=== PATIENT | female | born 1980 | race Caucasian/White ===

== ENCOUNTER → 2016-06-19 | Outpatient (REF) | payer MEDICAID, OTHER ==
[~2016-06-19] MED LIST: /ONDA4TA OR; ABIL1TAB5 PO; BCP OR; BOTO10VL IM; FIORICET OR; IBUPOTC PO; MACR100C3 PO; MAXA10TA17 OR; PERCOCET PO; PROP40TA OR; RIFAMPIN OR; SUMA100T2 PO; TOPI1TAB31 PO; VENL150T PO; XANA0.25 OR; ZOLO100T OR
[2016-06-19 21:23] LABS: CALCIUM OXALATE CRYSTALS LARGE
== END ==
LOC: M LAB REF 09:06
PROVIDERS: ATTEND Physician Assistant
DX: N39.0 Urinary tract infection, site not specified (principal)

== ENCOUNTER 2016-06-23 10:14 | Day surgery (SDC) | payer MEDICAID, OTHER ==
[~2016-06-23] VITALS: Ht 160 cm; Wt 90.9 kg
[~2016-06-23 10:14] MED LIST changes: -ABIL1TAB5 PO; -BOTO10VL IM; -IBUPOTC PO; -MACR100C3 PO; -PERCOCET PO; -SUMA100T2 PO; -TOPI1TAB31 PO; -VENL150T PO
[2016-06-23] MEDS ORDERED: ONDANSETRON 4MG/2ML VIAL (J2405) As Ordered ONE ×5 (10:38→20:58)
[2016-06-23] MEDS ORDERED: METOCLOPRAMIDE INJ 10MG/2ML VIAL (J2765) As Ordered ONE (10:38)
[2016-06-23 11:14] LABS: BASO % 0.4 % (0.0-1.0); EOS # 0.3 K/mm3 (0.0-0.50); EOS % 2.7 % (0.0-3.0); LARGE UNSTAINED CELL # 0.1 K/mm3 (0.0-0.4); LARGE UNSTAINED CELL % 1.1 % (0.0-4.0); LYMPH # 1.6 K/mm3 (1.5-4.5); MEAN CORPUSCULAR HEMOGLOBIN 31.7 pg (27.0-33.0); MEAN CORPUSCULAR HGB CONC 34.6 g/dl (32.0-36.5); MEAN CORPUSCULAR VOLUME 91.7 fl (80.0-96.0); MONO # 0.6 K/mm3 (0.0-0.8); MONO % 5.8 % (0.0-5.0); NEUTROPHILS # 7.5 K/mm3 (1.8-7.7); PLATELET COUNT, AUTOMATED 286 k/mm3 (150-450); RED CELL DISTRIBUTION WIDTH 13.1 % (11.5-14.5); WHITE BLOOD COUNT 9.9 K/mm3 (4.0-10.0)
[2016-06-23 11:24] LABS: ALBUMIN 3.6 GM/DL (3.2-5.2); ALBUMIN/GLOBULIN RATIO 1.03 (1.00-1.93); ALKALINE PHOSPHATASE 42 U/L (45-117); ALT/SGPT 20 U/L (12-78); AMYLASE 59 U/L (25-115); ANION GAP 10 MEQ/L (8-16); AST/SGOT 13 U/L (15-37); BILIRUBIN,DIRECT < 0.1 MG/DL (0.0-0.2); BILIRUBIN,TOTAL 0.2 MG/DL (0.2-1.0); BLOOD UREA NITROGEN 19 MG/DL (7-18); CARBON DIOXIDE LEVEL 22 MEQ/L (21-32); CHLORIDE LEVEL 110 MEQ/L (98-107); CREATININE FOR GFR 1.67 MG/DL (0.55-1.02); GLUCOSE, FASTING 87 MG/DL (70-105); POTASSIUM SERUM 3.9 MEQ/L (3.5-5.1); SODIUM LEVEL 142 MEQ/L (136-145); TOTAL PROTEIN 7.1 GM/DL (6.4-8.2)
--- NOTE | 2016-06-23 11:42 | REP ---
Clinical: Renal colic. Findings: Mild to moderate right-sided obstructive uropathy is appreciated with perinephric stranding and hydroureteronephrosis as well as periureteral stranding with a 4.0 mm calculus in the distal right ureter approaching the ureterovesicle junction (images 129 - 130). The left kidney demonstrates 3 mm nonobstructing intrarenal calculus without perinephric stranding or hydroureteronephrosis. The bladder is collapsed. Liver, spleen, pancreas, gallbladder, and bilateral adrenal glands are normal. The enteric system is without obstruction or acute inflammatory process and a normal terminal ileum and appendix are identified in the right lower quadrant. Pelvis demonstrates collapsed bladder with 4 mm calculus approaching the right ureterovesical junction. Uterus and adnexa are normal. No pelvic fluid or ascites. No adenopathy. No free air. Abdominal aorta without aneurysm. Lung bases are clear. Impression: Mild to moderate right-sided obstructive uropathy with a 4 mm calculus approaching the ureterovesicle junction. 3 mm nonobstructing left renal calculus. Signed by Keith Lacey MD 06/23/2016 11:34 A
[2016-06-23] MEDS ORDERED: MORPHINE 4 MG/ML 1ML SYRINGE As Ordered ONE ×2 (13:18→15:36)
[2016-06-23] MEDS ORDERED: VENL150T PO (13:50)
[2016-06-23] MEDS ORDERED: TOPI1TAB31 PO ×2 (13:50)
[2016-06-23] MEDS ORDERED: ABIL1TAB5 PO (13:50)
[2016-06-23] MEDS ORDERED: IBUPOTC PO (13:50)
[2016-06-23] MEDS ORDERED: MACR100C3 PO (13:50)
[2016-06-23] MEDS ORDERED: BOTO10VL IM (13:50)
[2016-06-23] MEDS ORDERED: SUMA100T2 PO (13:51)
--- NOTE | 2016-06-23 14:05 | CR ---
DATE OF CONSULTATION: 06/23/2016 REASON FOR CONSULTATION: Right flank pain, found to have a 4 mm obstructing right ureteral stone. HISTORY OF PRESENT ILLNESS: The patient is a 36-year-old female who has had right upper back pain radiating to the groin area for the last 5 days. She was seen at urgent care and diagnosed with a kidney infection and started on Macrobid. She continued to have the pain with some nausea, and she decided to come into the emergency room. A CT scan of the abdomen and pelvis was done on 06/23/2016, and it showed a 4 mm distal right ureteral stone with right obstructive uropathy with right hydroureteronephrosis and periureteral and perinephric stranding. There is also nonobstructing 3 mm stone. A urinalysis does show 7 white blood cells per high power field and four red blood cells. Her creatinine is elevated at 1.67. Her white blood count is 9.9. The patient has no previous history of kidney stones. She does get approximately one urinary tract infection yearly, and her symptoms include urinary frequency and also right flank discomfort. She denies any history of gross hematuria. She has had no burning with urination recently and no fever or chills. PAST MEDICAL HISTORY: 1. Anxiety. 2. Depression. 3. Migraine headaches. PAST SURGICAL HISTORY: 1. Sinus surgery. 2. Tonsillectomy. 3. Laser surgery for cervical dysplasia. 4. Tubal ligation. MEDICATIONS: - Effexor - Imitrex - Topamax - Abilify ALLERGIES: DEPAKOTE, STADOL, MAXALT. SOCIAL HISTORY: She quit smoking cigarettes in the summer of 2015. She does not drink alcohol, either, for the last many months; and prior to that, was just an occasional drinker. She is and a single parent with a young son. FAMILY HISTORY: Her father has hypercholesterolemia, and her mother has obesity. REVIEW OF SYSTEMS: A 12-system review was reviewed in the chart and was essentially negative. She has had no significant constipation, diarrhea, or other issues. PHYSICAL EXAMINATION: This is a well-developed, well-nourished female, lying in a hospital bed, in no acute respiratory distress. She is alert and oriented times three. Her temperature is 96.3, her pulse is 64, respirations are 18, and her blood pressure is 108/69. Her eyes are pupils equal, round, and reactive to light (PERRL) and extraocular movements intact (EOMI). Her neck is supple, and her trachea is midline. She has no significant supraclavicular or cervical adenopathy. Her heart has a regular rate and rhythm. Her lungs are clear to auscultation and percussion. She does have some mild right lower back pain but no severe right costovertebral angle (CVA) tenderness. Her abdomen is soft with some mild right lower quadrant tenderness but no rebound or guarding. Her extremities show no cyanosis, clubbing, or edema. LABORATORY DATA: Her white blood count is 9.9, hemoglobin and hematocrit 14.6 over 42.3. Her BUN is 19, and her creatinine is 1.67. Her urinalysis shows 7 white blood cells and 4 red blood cells per high power field. RADIOLOGY: CT scan of the abdomen and pelvis 06/23/2016 shows a 4 mm distal right stone with right hydroureteronephrosis with periureteral and perinephric stranding. There is also a 3 mm nonobstructing left renal stone. DISCUSSION: I discussed these findings at length with the patient today. We discussed all different options, alternatives, risks, and benefits. We discussed watchful waiting versus surgical management. Because she has been in pain for 5 days, she would prefer to proceed with surgical management today. We discussed exactly how this is done and what to expect both pre- and postprocedurally. We discussed the major risks of the procedure, which included but was not limited to the risks of general anesthesia, reactions to medication, bleeding, infection, inability to remove the stone, ureteral and/or bladder injury, and a postoperative stent which will need to be removed in the office. We discussed that the stent is uncomfortable for some people. At this point, she would like to proceed with the proposed procedure. IMPRESSION: 1. 5-day history of right flank pain, found to have a 4 mm distal right ureteral stone with periureteral and perinephric stranding with a urinalysis showing 7 white blood cells and 4 red blood cells. 2. Nonobstructing left ureteral stone in a patient who never had stones prior to today. 3. Occasional urinary tract infection (UTI). 4. Medical history for anxiety, depression, migraine headaches. PLAN: Schedule cystoscopy, right ureteroscopy with right laser lithotripsy versus stone basketing, and a right ureteral stent placement today.
--- NOTE | 2016-06-23 15:44 | EDDOCDS ---
Nurse's Notes [facility] Name: Janelle Fonseca Age: 36 yrs Sex: Female : 1980 Arrival Date: 06/23/2016 Time: 10:14 Bed Admit Hold Private MD: Samson Crawford Diagnosis: Calculus of kidney and ureter-Right 4mm obstructing and Left 3mm nonobstructing left;Urinary tract infection, site not specified Presentation: 06/23 10:21 Presenting complaint: Patient states: went to urgent care tues was told she had a dsf kidney infection. Pt reports having the same sxs. Pt c/o right flank pain and lower abdominal pain. Adult Sepsis Screening: The patient does not have new or worsening altered mentation. Patient's respiratory rate is less than 22. Systolic blood pressure is greater than 100. Patient has a qSOFA score of 0- Negative Sepsis Screen. Suicide/Homicide risk assessment- the patient denies having any suicidal and/or homicidal ideations and does not present with any other emotional, behavioral or mental health complaints. Status: The patient is a dependent. Transition of care: patient was not received from another setting of care. 10:21 Acuity: KATHERINE Level 3 dsf 10:21 Method Of Arrival: Walkin/Carried/Asstd dsf Triage Assessment: 10:25 General: Appears in no apparent distress, Behavior is appropriate for age, cooperative. dsf Pain: Location: right flank Pain currently is 6 out of 10 on a pain scale. Quality of pain is described as stabbing. HIV screening NA for this visit Offered previously. : Reports urgency since 4 days ago. LOPPER: 10:25 LMP 05/26/2016 dsf Historical: - Allergies: no known allergies; - Home Meds: 1. Topamax 100 mg Oral tab 2 tabs 2 tabs at HS 1 tab in AM (Last dose: 06/22/2016) 2. botox injection every 3 months 3. Imitrex 25 mg Oral tab as needed (Last dose: Unknown) 4. Effexor XR 150 mg Oral cp24 2 cap once daily (Last dose: 06/22/2016) 5. Abilify 15 mg Oral tab 1 tab once daily (Last dose: 06/22/2016) 6. 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 No barriers to communication noted, The patient speaks fluent Italian, Speaks appropriately for age. - Family history: Not pertinent. - : The pt / caregiver states he / she is not on anticoagulants. Home medication list is obtained from the patient. - Exposure Risk Screening:: None identified. Screenin:02 Screening information is obtained from the patient. Fall risk: No risks identified. dls Assistance ADL's: requires no assistance with activities of daily living. Abuse/DV Screen: The patient / caregiver reports he/she is: not in a situation that causes fear, pain or injury. Nutritional screening: No deficits noted. Advance Directives: Currently, there is no health care proxy. There is no active DNR order. There is no living will. There is no Power of Wire Harness Assembler. Advance directive information has not previously been placed in an [facility] medical record. Further advance directive information is declined. home support is adequate. Assessment: 10:58 General: Appears in no apparent distress, well developed, well nourished, well groomed, dls Behavior is cooperative. Neurological: No deficits noted. EENT: No deficits noted. Cardiovascular: No deficits noted. Respiratory: No deficits noted. GI: Reports nausea. : Reports burning with urination. 13:34 General: Dr Brush in to examine pt for admission instructed pt again to remain NPO dls medicated pt IV for discomfort IV site remains patent and clear.. 13:49 General: Appears in no apparent distress, Behavior is appropriate for age, cooperative. pml Pain: Denies pain. Neurological: Level of Consciousness is awake, alert, Oriented to person, place, time. Cardiovascular: Capillary refill < 3 seconds. Respiratory: Airway is patent Respiratory effort is even, unlabored. Derm: Skin is pink, warm & dry. 15:04 General: resting on stretcher, resps easy and unlabored, skin p/w/d. voices no pml complaints. 15:40 General: Appears in no apparent distress, Behavior is appropriate for age, cooperative. pml Pain: Location: back Pain currently is 7 out of 10 on a pain scale. Neurological: Level of Consciousness is awake, alert, Oriented to person, place, time. Cardiovascular: Capillary refill < 3 seconds. Respiratory: Airway is patent Respiratory effort is even, unlabored. GI: Abdomen is non- distended obese. Derm: Skin is pink, warm & dry. Vital Signs: 10:17 BP 144 / 86; Pulse 102; Resp 18; Temp 96.5(T); Pulse Ox 100% on R/A; Weight 90.72 kg nb2 (R); Height 5 ft. 3 in. (160.02 cm) (R); Pain 6/10; 13:42 BP 117 / 73; Pulse 78; Resp 18; Temp 96.9(O); Pulse Ox 98% on R/A; Pain 4/10; nb2 13:45 Pain 0/10; pml 15:42 BP 110 / 59; Pulse 84; Resp 18; Temp 97.9; Pulse Ox 99% on R/A; Pain 5/10; pml 10:17 Body Mass Index 35.43 (90.72 kg, 160.02 cm) [facility] Vitals: 10:17 Log In Time: June 23, 2016 at 10:07. nb2 ED Course: 10:16 Patient visited by Kasie Weir. nb2 10:16 Samson Crawford is Private Physician. nb2 10:16 Patient moved to Waiting nb2 10:18 Patient visited by Kasie Weir. nb2 10:18 Patient moved to Pre RCE nb2 10:22 Triage Initiated dsf 10:25 Ashley Roe [facility]-C [facility]. ef1 10:25 Jessica Springer MD is Attending Physician. ef1 10:26 Patient moved to Triage 2 dsf 10:27 Patient visited by Ashley Roe PA-C. ef1 10:39 Patient moved to I4 / M4 dsf 10:42 Pt greeted and oriented to ED. Patient advised of names of staff involved in care, jam1 location of call green, wait times and NPO status. Patient has correct armband on for positive identification. Placed in gown. Bed in low position. Call light in reach. Side rails up X 1. Door closed. 10:51 Patient name changed from Janelle\S\\S\Fonseca\S\ to Janelle\S\ \S\Fonseca. EDMS 10:52 [facility] Payment Agreement was scanned into [employer] and attached to record. lg 10:54 Amylase Sent. dls 10:54 Basic Metabolic Profile Sent. dls 10:54 CBC with Diff Sent. dls 10:55 Lipase Sent. dls 10:55 Liver Profile Sent. dls 10:56 Inserted saline lock: 20 gauge in right antecubital area and blood collected. The dls patient tolerated the procedure well. No procedures done that require assistance. Labs drawn. (by ED staff). Sent per order to lab. Urine collected. Clean catch specimen. 11:02 Patient visited by Ashley Roe PA-C. ef1 11:02 The patient / caregiver is instructed regarding the plan of care and ED course. dls 11:31 Patient visited by Ashley Roe PA-C. ef1 11:47 CT ABD & PELVIS: No Contrast Returned. EDMS 12:18 Patient visited by Ashley Roe PA-C. ef1 12:40 Patient visited by Ashley Roe PA-C. ef1 12:57 Jackie Brush MD is Hospitalizing Provider. ef1 13:00 Patient visited by Nara Heller PCA. jam1 13:27 Admission Orders was scanned into [employer] and attached to record. ar3 13:41 Telma Gudino,KARTHIK is Primary Nurse. kr3 13:41 Patient moved to 7 kr3 13:42 Patient visited by Kasie Weir. nb2 13:49 Patient visited by Telma Gudino,KARTHIK. pml 14:34 Patient moved to Admit Hold [id number] 14:58 T-Sheet-- Draft Copy was scanned into [employer] and attached to record. gb 15:05 Patient visited by Telma Gudino,KARTHIK. pml 15:29 Patient visited by Anmol Russ RN. bcj Administered Medications: 10:55 Drug: NS 0.9% 1000 ml [sodium chloride 0.9 % intravenous solution] Route: IV; Rate: dls bolus; Site: right antecubital; 10:55 Drug: Ondansetron 4 mg Route: IVP; Site: right antecubital; dls 10:56 Drug: Metoclopramide 10 mg [metoclopramide 5 mg/mL injection solution] Route: IV; Rate: dls 40 mg/hr; Infused Over: 15 mins; Site: right antecubital; 11:46 Follow up: IV Status: Completed infusion dls 13:33 Drug: morphine 4 mg [morphine 4 mg/mL intravenous cartridge (1 mL)] Route: IVP; Site: dls right antecubital; 13:45 Follow up: Pain 0/10 Adult; Response: Pain is decreased pml 13:33 Drug: Ondansetron 4 mg [ondansetron HCl 2 mg/mL intravenous solution (2 mL)] Route: dls IVP; Site: right antecubital; 15:40 Drug: morphine 4 mg [morphine 4 mg/mL intravenous cartridge (1 mL)] Route: IVP; Site: pml right antecubital; 15:40 Drug: Ondansetron 4 mg [ondansetron HCl 2 mg/mL intravenous solution (2 mL)] Route: pml IVP; Site: right antecubital; 15:41 Follow up: Response: Pt left department before re-evaluation is appropriate pml Order Results: Lab Order: Amylase; SPEC'M 06/23/16 10:53 Test: AMYLASE; Value: 59; Range: 25-115; Units: U/L; Status: F Lab Order: Basic Metabolic Profile; SPEC'M 06/23/16 10:53 Test: GLUCOSE, FASTING; Value: 87; Range: 70-105; Units: MG/DL; Status: F Test: BLOOD UREA NITROGEN; Value: 19; Range: 7-18; Abnormal: Above high normal; Units: MG/DL; Status: F Test: CREATININE FOR GFR; Value: 1.67; Range: 0.55-1.02; Abnormal: Above high normal; Units: MG/DL; Status: F Test: GLOMERULAR FILTRATION RATE; Value: 37.0; Range: >60; Abnormal: Below low normal; Status: F Test: SODIUM LEVEL; Value: 142; Range: 136-145; Units: MEQ/L; Status: F Test: POTASSIUM SERUM; Value: 3.9; Range: 3.5-5.1; Units: MEQ/L; Status: F Test: CHLORIDE LEVEL; Value: 110; Range: 98-107; Abnormal: Above high normal; Units: MEQ/L; Status: F Test: CARBON DIOXIDE LEVEL; Value: 22; Range: 21-32; Units: MEQ/L; Status: F Test: ANION GAP; Value: 10; Range: 8-16; Units: MEQ/L; Status: F Test: CALCIUM LEVEL; Value: 9.0; Range: 8.5-10.1; Units: MG/DL; Status: F Test Note: ; Units are mL/min/1.73 m2 Chronic Kidney Disease Staging per NKF: Stage I & II GFR >=60 Normal to Mildly Decreased Stage III GFR 30-59 Moderately Decreased Stage IV GFR 15-29 Severely Decreased Stage V GFR <15 Very Little GFR Left ESRD GFR <15 on PLANT TECHNICIAN Lab Order: CBC with Diff; SPEC'M 06/23/16 10:53 Test: WHITE BLOOD COUNT; Value: 9.9; Range: 4.0-10.0; Units: K/mm3; Status: F Test: RED BLOOD COUNT; Value: 4.61; Range: 4.00-5.40; Units: M/mm3; Status: F Test: HEMOGLOBIN; Value: 14.6; Range: 12.0-16.0; Units: g/dl; Status: F Test: HEMATOCRIT; Value: 42.3; Range: 36.0-47.0; Units: %; Status: F Test: MEAN CORPUSCULAR VOLUME; Value: 91.7; Range: 80.0-96.0; Units: fl; Status: F Test: MEAN CORPUSCULAR HEMOGLOBIN; Value: 31.7; Range: 27.0-33.0; Units: pg; Status: F Test: MEAN CORPUSCULAR HGB CONC; Value: 34.6; Range: 32.0-36.5; Units: g/dl; Status: F Test: RED CELL DISTRIBUTION WIDTH; Value: 13.1; Range: 11.5-14.5; Units: %; Status: F Test: PLATELET COUNT, AUTOMATED; Value: 286; Range: 150-450; Units: k/mm3; Status: F Test: NEUTROPHILS %; Value: 75.0; Range: 36.0-66.0; Abnormal: Above high normal; Units: %; Status: F Test: LYMPH %; Value: 15.0; Range: 24.0-44.0; Abnormal: Below low normal; Units: %; Status: F Test: MONO %; Value: 5.8; Range: 0.0-5.0; Abnormal: Above high normal; Units: %; Status: F Test: EOS %; Value: 2.7; Range: 0.0-3.0; Units: %; Status: F Test: BASO %; Value: 0.4; Range: 0.0-1.0; Units: %; Status: F Test: LARGE UNSTAINED CELL %; Value: 1.1; Range: 0.0-4.0; Units: %; Status: F Test: NEUTROPHILS #; Value: 7.5; Range: 1.8-7.7; Units: K/mm3; Status: F Test: LYMPH #; Value: 1.6; Range: 1.5-4.5; Units: K/mm3; Status: F Test: MONO #; Value: 0.6; Range: 0.0-0.8; Units: K/mm3; Status: F Test: EOS #; Value: 0.3; Range: 0.0-0.50; Units: K/mm3; Status: F Test: BASO #; Value: 0.0; Range: 0.0-0.2; Units: K/mm3; Status: F Test: LARGE UNSTAINED CELL #; Value: 0.1; Range: 0.0-0.4; Units: K/mm3; Status: F Lab Order: Lipase; SPEC'M 06/23/16 10:53 Test: LIPASE; Value: 157; Range: 73-393; Units: U/L; Status: F Lab Order: Liver Profile; SPEC'M 06/23/16 10:53 Test: AST/SGOT; Value: 13; Range: 15-37; Abnormal: Below low normal; Units: U/L; Status: F Test: ALT/SGPT; Value: 20; Range: 12-78; Units: U/L; Status: F Test: ALKALINE PHOSPHATASE; Value: 42; Range: 45-117; Abnormal: Below low normal; Units: U/L; Status: F Test: BILIRUBIN,TOTAL; Value: 0.2; Range: 0.2-1.0; Units: MG/DL; Status: F Test: BILIRUBIN,DIRECT; Value: < 0.1; Range: 0.0-0.2; Units: MG/DL; Status: F Test: TOTAL PROTEIN; Value: 7.1; Range: 6.4-8.2; Units: GM/DL; Status: F Test: ALBUMIN; Value: 3.6; Range: 3.2-5.2; Units: GM/DL; Status: F Test: ALBUMIN/GLOBULIN RATIO; Value: 1.03; Range: 1.00-1.93; Status: F Lab Order: Urinalysis; SPEC'M 06/23/16 10:45 Test: APPEARANCE, URINE; Value: CLEAR; Range: CLEAR; Status: F Test: COLOR, URINE; Value: ART; Range: YELLOW; Status: F Test: PH,URINE; Value: 5.0; Range: 5.0-9.0; Units: UNITS; Status: F Test: SPECIFIC GRAVITY URINE AUTO; Value: 1.024; Range: 1.002-1.035; Status: F Test: PROTEIN, URINE AUTO; Value: NEGATIVE; Range: NEGATIVE; Units: mg/dL; Status: F Test: GLUCOSE, URINE (UA) AUTO; Value: NEGATIVE; Range: NEGATIVE; Units: mg/dL; Status: F Test: KETONE, URINE AUTO; Value: NEGATIVE; Range: NEGATIVE; Units: mg/dL; Status: F Test: UROBILINOGEN, URINE AUTO; Value: 2.0; Range: 0.0-2.0; Abnormal: Above high normal; Units: mg/dL; Status: F Test: BILIRUBIN, URINE AUTO; Value: NEGATIVE; Range: NEGATIVE; Status: F Test: NITRITE, URINE AUTO; Value: POSITIVE; Range: NEGATIVE; Status: F Test: LEUKOCYTE ESTERASE, URINE AUTO; Value: 3+; Range: NEGATIVE; Abnormal: Above high normal; Status: F Test: BLOOD, URINE BLOOD; Value: 1+; Range: NEGATIVE; Abnormal: Above high normal; Status: F Test: WBC, URINE AUTO; Value: 7; Range: 0-3; Abnormal: Above high normal; Units: /HPF; Status: F Test: RBC, URINE AUTO; Value: 4; Range: 0-3; Abnormal: Above high normal; Units: /HPF; Status: F Test: BACTERIA, URINE AUTO; Value: NEGATIVE; Range: NEGATIVE; Status: F Test: SQUAMOUS EPITHELIAL CELL UR AU; Value: 5; Range: 0-6; Units: /HPF; Status: F Test: MUCUS, URINE; Value: SMALL; Range: NEGATIVE; Status: F Test: HYALINE CAST, URINE AUTO; Value: 0; Range: 0-1; Units: /LPF; Status: F Radiology Order: CT ABD & PELVIS: No Contrast Test: CT ABD & PELVIS: No Contrast REASON FOR EXAMINATION: Renal colic; Clinical: Renal colic.; ; Findings:; Mild to moderate right-sided obstructive uropathy is appreciated with perinephric; stranding and hydroureteronephrosis as well as periureteral stranding with a 4.0; mm calculus in the distal right ureter approaching the ureterovesicle junction; (images 129 - 130). The left kidney demonstrates 3 mm nonobstructing intrarenal; calculus without perinephric stranding or hydroureteronephrosis. The bladder is; collapsed.; ; Liver, spleen, pancreas, gallbladder, and bilateral adrenal glands are normal.; The enteric system is without obstruction or acute inflammatory process and a; normal terminal ileum and appendix are identified in the right lower quadrant.; Pelvis demonstrates collapsed bladder with 4 mm calculus approaching the right; ureterovesical junction. Uterus and adnexa are normal. No pelvic fluid or; ascites. No adenopathy. No free air. Abdominal aorta without aneurysm. Lung; bases are clear.; ; Impression:; Mild to moderate right-sided obstructive uropathy with a 4 mm calculus; approaching the ureterovesicle junction. 3 mm nonobstructing left renal; calculus.; ; ; Signed by; Keith Lacey MD 06/23/2016 11:34 A; Outcome: 12:57 Decision to Hospitalize by Provider. ef1 15:40 Discharge Assessment: Patient awake, alert and oriented x 3. No cognitive and/or pml functional deficits noted. Patient verbalized understanding of disposition instructions. patient administered narcotics - yes. Patient was admitted to the hospital or transferred to another facility. The following High Risk Discharge criteria are identified: None. Admitted to Pediatrics accompanied by tech, via wheelchair, with chart. Condition: good Condition: stable. CT Study completed. Admission hand-off: Report called to Peds RN. Property :Personal belongings accompany Pt. 15:43 Patient left the ED. pml Signatures: Dispatcher [employer] EDMS Anmol Russ RN Ivy Sharma RN RN dls Murphy, Jane, [facility] jam1 Bhavani Swann, Reg Reg gb Jesus Manuel Bass, Reg Reg lg Arianna Cardenas,RN RN kr3 Ashley Roe, PA-C PA-C ef1 Camille Sullivan, CONSULTING ACTUARY CON[facility] ar3 Tania Aguilar,RN RN tayef Telma Gudino,RN RN Adela Briceno,RN RN js13 Kasie Weir MTDD
--- NOTE | 2016-06-23 15:44 | EDDOCDS ---
Physician Documentation [facility] Name: Janelle Fonseca Age: 36 yrs Sex: Female : 1980 Arrival Date: 06/23/2016 Time: 10:14 Bed Admit Hold Private MD: Samson Crawford Disposition: 06/23/16 12:57 Hospitalization ordered by Jackie Brush for Inpatient Admission. Preliminary diagnosis are Calculus of kidney and ureter - Right 4mm obstructing and Left 3mm nonobstructing left, Urinary tract infection, site not specified. - Bed requested for M PED. - Status is Inpatient Admission. pml - Condition is Stable. - Problem is new. - Symptoms have improved. Historical: - Allergies: no known allergies; - Home Meds: 1. Topamax 100 mg Oral tab 2 tabs 2 tabs at HS 1 tab in AM (Last dose: 06/22/2016) 2. botox injection every 3 months 3. Imitrex 25 mg Oral tab as needed (Last dose: Unknown) 4. Effexor XR 150 mg Oral cp24 2 cap once daily (Last dose: 06/22/2016) 5. Abilify 15 mg Oral tab 1 tab once daily (Last dose: 06/22/2016) 6. 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 No barriers to communication noted, The patient speaks fluent [place], Speaks appropriately for age. - Family history: Not pertinent. - : The pt / caregiver states he / she is not on anticoagulants. Home medication list is obtained from the patient. - Exposure Risk Screening:: None identified. COMPUTER SYSTEMS ARCHITECT: 06/23 10:25 LMP 05/26/2016 dsf Vital Signs: 10:17 BP 144 / 86; Pulse 102; Resp 18; Temp 96.5(T); Pulse Ox 100% on R/A; Weight 90.72 kg / nb2 200 lbs (R); Height 5 ft. 3 in. (160.02 cm) (R); Pain 6/10; 13:42 BP 117 / 73; Pulse 78; Resp 18; Temp 96.9(O); Pulse Ox 98% on R/A; Pain 4/10; nb2 13:45 Pain 0/10; pml 15:42 BP 110 / 59; Pulse 84; Resp 18; Temp 97.9; Pulse Ox 99% on R/A; Pain 5/10; pml 10:17 Body Mass Index 35.43 (90.72 kg, 160.02 cm) nb2 MDM: 10:34 NS 0.9% 1000 ml IV at bolus once ordered. ef1 10:34 Ondansetron 4 mg IVP once ordered. ef1 10:34 IV Saline Lock ordered. ef1 10:34 Undress patient appropriately for examination ordered. ef1 10:34 Metoclopramide 10 mg IV at 40 mg/hr once over 15 mins ordered. ef1 10:35 Amylase Ordered. EDMS 10:35 Basic Metabolic Profile Ordered. EDMS 10:35 CBC with Diff Ordered. EDMS 10:35 Lipase Ordered. EDMS 10:35 Liver Profile Ordered. EDMS 10:35 Urinalysis Ordered. EDMS 10:35 Urine Culture Ordered. EDMS 10:36 CT ABD & PELVIS: No Contrast Ordered. EDMS 10:36 NOTHING BY MOUTH+DIET ordered. EDMS 10:44 Financial registration complete. lg 10:52 [facility] [place] was scanned into [employer] and attached to record. lg 11:31 Basic Metabolic Profile Reviewed. ef1 11:31 CBC with Diff Reviewed. ef1 11:31 Liver Profile Reviewed. ef1 11:31 Urinalysis Reviewed. ef1 11:31 Amylase Reviewed. ef1 11:31 Lipase Reviewed. ef1 12:53 morphine 4 mg IVP once ordered. ef1 12:53 Ondansetron 4 mg IVP once ordered. ef1 13:27 Admission Orders was scanned into [employer] and attached to record. ar3 14:58 T-Sheet-- Draft Copy was scanned into [employer] and attached to record. gb 14:59 BED REQUEST+ADM ordered. EDMS 15:30 morphine 4 mg IVP once ordered. ef1 15:30 Ondansetron 4 mg IVP once ordered. ef1 Administered Medications: 10:55 Drug: NS 0.9% 1000 ml [sodium chloride 0.9 % intravenous solution] Route: IV; Rate: dls bolus; Site: right antecubital; 10:55 Drug: Ondansetron 4 mg Route: IVP; Site: right antecubital; dls 10:56 Drug: Metoclopramide 10 mg [metoclopramide 5 mg/mL injection solution] Route: IV; Rate: dls 40 mg/hr; Infused Over: 15 mins; Site: right antecubital; 11:46 Follow up: IV Status: Completed infusion dls 13:33 Drug: morphine 4 mg [morphine 4 mg/mL intravenous cartridge (1 mL)] Route: IVP; Site: dls right antecubital; 13:45 Follow up: Pain 0/10 Adult; Response: Pain is decreased pml 13:33 Drug: Ondansetron 4 mg [ondansetron HCl 2 mg/mL intravenous solution (2 mL)] Route: dls IVP; Site: right antecubital; 15:40 Drug: morphine 4 mg [morphine 4 mg/mL intravenous cartridge (1 mL)] Route: IVP; Site: pml right antecubital; 15:40 Drug: Ondansetron 4 mg [ondansetron HCl 2 mg/mL intravenous solution (2 mL)] Route: pml IVP; Site: right antecubital; 15:41 Follow up: Response: Pt left department before re-evaluation is appropriate [facility] Signatures: Dispatcher [employer] Ivy Knight RN RN dls Bhavani Swann, Reg Reg gb Jesus Manuel Bass, Reg Reg lg Ashley Roe, PA-C PA-C ef1 Camille Sullivan, PARTY PLAN DEALER PARTY PLAN DEALER ar3 Tania Aguilar RN RN dsf Quay, Paulina, RN RN [facility] The chart was reviewed and I authenticate all verbal orders and agree with the evaluation and treatment provided.Attachments: 10:52 [facility] Payment Agreement lg 13:27 Admission Orders ar3 14:58 T-Sheet-- Draft Copy gb MTDD
[2016-06-23 16:02] VITALS: BP 117/65
[2016-06-23] MEDS ORDERED: MORPHINE 2 MG/ML 1ML SYRINGE IV PRN (17:30)
[2016-06-23 17:48] VITALS: BP 115/60
[2016-06-23] MEDS ORDERED: D5W/0.45% SODIUM CHLORIDE 1,000 ML IV SCH (18:00)
[2016-06-23] MEDS ORDERED: CONRAY-60 60% 50ML VIAL (Q9961) As Ordered ONE (19:22)
[2016-06-23] MEDS ORDERED: PROPOFOL 200 MG/20 ML VIAL As Ordered ONE (19:25)
[2016-06-23] MEDS ORDERED: fentaNYL 100 MCG/2 ML INJECTION (J3010) As Ordered ONE ×2 (19:25→20:07)
[2016-06-23] MEDS ORDERED: MIDAZOLAM INJ 2 MG/2 ML VIAL (J2250) As Ordered ONE (19:25)
[2016-06-23] MEDS ORDERED: LIDOCAINE 2% INJ 100 MG/5 ML SDV (FOR ANES.) As Ordered ONE (19:25)
[2016-06-23] MEDS ORDERED: ROCURONIUM BROMIDE 50 MG/5 ML VIAL As Ordered ONE (19:30)
[2016-06-23] MEDS ORDERED: ceFAZolin 1GM INJ (J0690) As Ordered ONE (19:37)
[2016-06-23] MEDS ORDERED: NEOSTIGMINE 1MG/ML 5 ML SYRINGE (J2710) As Ordered ONE (20:04)
[2016-06-23] MEDS ORDERED: KETOROLAC 60 MG/2 ML VIAL (J1885) As Ordered ONE (20:04)
[2016-06-23] MEDS ORDERED: GLYCOPYRROLATE INJ 0.2 MG/ML 2 ML VIAL As Ordered ONE (20:04)
[2016-06-23] MEDS ORDERED: PERCOCET PO (20:34)
[2016-06-23] MEDS ORDERED: PERCOCET 5MG/325MG TAB PO PRN (20:45)
[2016-06-23] MEDS ORDERED: NORCO, ANEXSIA 5/325MG TABLET (HYDROcodone/ACETAMINOPHEN) As Ordered ONE ×2 (20:58→21:27)
[2016-06-23] MEDS ORDERED: LR 1,000 ML IV SCH (21:00)
[2016-06-23] MEDS ORDERED: ONDANSETRON 4MG/2ML VIAL (J2405) IV PRN (21:00)
[2016-06-23] MEDS ORDERED: fentaNYL 100 MCG/2 ML INJECTION (J3010) IV PRN (21:00)
[2016-06-23] MEDS: NORCO, ANEXSIA 5/325MG TABLET (HYDROcodone/ACETAMINOPHEN) PO PRN ×2 (21:00→21:29)
[2016-06-23 21:55] VITALS: BP 109/61
[2016-06-23 22:25] VITALS: BP 98/54
[2016-06-23 22:55] VITALS: BP 107/67
[2016-06-23 23:55] VITALS: BP 100/52
--- NOTE | 2016-06-25 09:06 | REP ---
Clinical: Ureteral stent placement. Technique: Intraoperative fluoroscopic imaging. Findings: Single intraoperative fluoroscopic image demonstrates a right ureteral stent in seemingly satisfactory position. Total fluoroscopic time 1 second. Impression: Status post right ureteral stent placement. Signed by Keith Lacey MD 06/25/2016 08:57 A
--- NOTE | 2016-06-25 12:57 | RO ---
DATE OF PROCEDURE: 06/23/2016 PREOPERATIVE DIAGNOSIS: 4 mm distal right ureteral stone with obstructive uropathy and hydroureter nephrosis and periureteral stranding. POSTOPERATIVE DIAGNOSIS: 4 mm distal right ureteral stone with obstructive uropathy and hydroureter nephrosis and periureteral stranding. PROCEDURE: Cystoscopy, right ureteroscopy, right stone basketing, and right ureteral stent placement. SURGEON: Dr. Jackie Brush FORENSIC PATHOLOGIST: ANESTHESIA: General. MEDICATION: Ancef 2 grams preoperatively. Drains: 6-Lithuanian double-J [place] ureteral stent. SPECIMENS: None. INDICATIONS FOR PROCEDURE: The patient is a 36-year-old female with a 5-day history of significant right lower back pain radiating to the groin with associated nausea. She had gone to Urgent Care and was told she had a kidney infection and started on antibiotics. She comes into the emergency room today and a CT scan shows a 4 mm distal obstructing stone and a 3 mm nonobstructing left ureteral stone. After discussing all different options, alternatives, risks and benefits it was decided to bring her to the operating room for definitive stone management. DESCRIPTION OF PROCEDURE: The patient was brought into the operating room. Sequential compression devices and thromboembolic deterrent (DAYO) stockings were in place and she was given preoperative antibiotics. Next, general anesthesia was performed. The patient was then placed in the lithotomy position and careful attention was paid that her pressure points were well padded and protected. A 21-Lithuanian cystoscope was inserted and the urethra was noted to be open without any evidence of lesions or strictures. Upon entering the bladder, both ureteral orifices were seen. There was no evidence of stones, erythematous patches, lesions or other significant abnormalities. At this point, a 0.035 guidewire was placed up through the right ureteral orifice up to the kidney under fluoroscopic guidance. This was then left as a has a safety wire. At this point, a rigid ureteroscope was placed and the distal stone was seen. A stone basket was then placed because it felt like the stone would fit easily and it did. It was removed through the ureter and when it was removed it did crumble into lots of small pieces. I then went back with the ureteroscope and saw no significant fragments in the ureter. At this point, a 6-Lithuanian [place] double-J ureteral stent was placed and this showed a nice curl up in the renal pelvis and in the bladder. The patient's bladder was emptied. She was returned to the recovery room in stable condition.
--- NOTE | 2016-06-25 16:44 | EDDOCDS ---
Nurse's Notes [facility] Name: Janelle Fonseca Age: 36 yrs Sex: Female : 1980 Arrival Date: 06/23/2016 Time: 10:14 Bed Admit Hold Private MD: Samson Crawford Diagnosis: Calculus of kidney and ureter-Right 4mm obstructing and Left 3mm nonobstructing left;Urinary tract infection, site not specified Presentation: 06/23 10:21 Presenting complaint: Patient states: went to urgent care tues was told she had a dsf kidney infection. Pt reports having the same sxs. Pt c/o right flank pain and lower abdominal pain. Adult Sepsis Screening: The patient does not have new or worsening altered mentation. Patient's respiratory rate is less than 22. Systolic blood pressure is greater than 100. Patient has a qSOFA score of 0- Negative Sepsis Screen. Suicide/Homicide risk assessment- the patient denies having any suicidal and/or homicidal ideations and does not present with any other emotional, behavioral or mental health complaints. Status: The patient is a dependent. Transition of care: patient was not received from another setting of care. 10:21 Acuity: KATHERINE Level 3 dsf 10:21 Method Of Arrival: Walkin/Carried/Asstd dsf Triage Assessment: 10:25 General: Appears in no apparent distress, Behavior is appropriate for age, cooperative. dsf Pain: Location: right flank Pain currently is 6 out of 10 on a pain scale. Quality of pain is described as stabbing. HIV screening NA for this visit Offered previously. : Reports urgency since 4 days ago. STOCK BLENDER: 10:25 LMP 05/26/2016 dsf Historical: - Allergies: no known allergies; - Home Meds: 1. Topamax 100 mg Oral tab 2 tabs 2 tabs at HS 1 tab in AM (Last dose: 06/22/2016) 2. botox injection every 3 months 3. Imitrex 25 mg Oral tab as needed (Last dose: Unknown) 4. Effexor XR 150 mg Oral cp24 2 cap once daily (Last dose: 06/22/2016) 5. Abilify 15 mg Oral tab 1 tab once daily (Last dose: 06/22/2016) 6. 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 No barriers to communication noted, The patient speaks fluent Andorran, Speaks appropriately for age. - Family history: Not pertinent. - : The pt / caregiver states he / she is not on anticoagulants. Home medication list is obtained from the patient. - Exposure Risk Screening:: None identified. Screenin:02 Screening information is obtained from the patient. Fall risk: No risks identified. dls Assistance ADL's: requires no assistance with activities of daily living. Abuse/DV Screen: The patient / caregiver reports he/she is: not in a situation that causes fear, pain or injury. Nutritional screening: No deficits noted. Advance Directives: Currently, there is no health care proxy. There is no active DNR order. There is no living will. There is no Power of Dice Dealer. Advance directive information has not previously been placed in an [facility] medical record. Further advance directive information is declined. home support is adequate. Assessment: 10:58 General: Appears in no apparent distress, well developed, well nourished, well groomed, dls Behavior is cooperative. Neurological: No deficits noted. EENT: No deficits noted. Cardiovascular: No deficits noted. Respiratory: No deficits noted. GI: Reports nausea. : Reports burning with urination. 13:34 General: Dr Brush in to examine pt for admission instructed pt again to remain NPO dls medicated pt IV for discomfort IV site remains patent and clear.. 13:49 General: Appears in no apparent distress, Behavior is appropriate for age, cooperative. pml Pain: Denies pain. Neurological: Level of Consciousness is awake, alert, Oriented to person, place, time. Cardiovascular: Capillary refill < 3 seconds. Respiratory: Airway is patent Respiratory effort is even, unlabored. Derm: Skin is pink, warm & dry. 15:04 General: resting on stretcher, resps easy and unlabored, skin p/w/d. voices no pml complaints. 15:40 General: Appears in no apparent distress, Behavior is appropriate for age, cooperative. pml Pain: Location: back Pain currently is 7 out of 10 on a pain scale. Neurological: Level of Consciousness is awake, alert, Oriented to person, place, time. Cardiovascular: Capillary refill < 3 seconds. Respiratory: Airway is patent Respiratory effort is even, unlabored. GI: Abdomen is non- distended obese. Derm: Skin is pink, warm & dry. Vital Signs: 10:17 BP 144 / 86; Pulse 102; Resp 18; Temp 96.5(T); Pulse Ox 100% on R/A; Weight 90.72 kg nb2 (R); Height 5 ft. 3 in. (160.02 cm) (R); Pain 6/10; 13:42 BP 117 / 73; Pulse 78; Resp 18; Temp 96.9(O); Pulse Ox 98% on R/A; Pain 4/10; nb2 13:45 Pain 0/10; pml 15:42 BP 110 / 59; Pulse 84; Resp 18; Temp 97.9; Pulse Ox 99% on R/A; Pain 5/10; pml 10:17 Body Mass Index 35.43 (90.72 kg, 160.02 cm) [facility] Vitals: 10:17 Log In Time: June 23, 2016 at 10:07. nb2 ED Course: 10:16 Patient visited by Kasie Weir. nb2 10:16 Samson Crawford is Private Physician. nb2 10:16 Patient moved to Waiting nb2 10:18 Patient visited by Kasie Weir. nb2 10:18 Patient moved to Pre RCE nb2 10:22 Triage Initiated dsf 10:25 Ashley Roe PA-C [facility]. ef1 10:25 Jessica Springer MD is Attending Physician. ef1 10:26 Patient moved to Triage 2 dsf 10:27 Patient visited by Ashley Roe PA-C. ef1 10:39 Patient moved to I4 / M4 dsf 10:42 Pt greeted and oriented to ED. Patient advised of names of staff involved in care, jam1 location of call green, wait times and NPO status. Patient has correct armband on for positive identification. Placed in gown. Bed in low position. Call light in reach. Side rails up X 1. Door closed. 10:51 Patient name changed from Janelle\S\\S\Fonseca\S\ to Janelle\S\ \S\Fonseca. EDMS 10:52 [facility] Payment Agreement was scanned into [employer] and attached to record. lg 10:54 Amylase Sent. dls 10:54 Basic Metabolic Profile Sent. dls 10:54 CBC with Diff Sent. dls 10:55 Lipase Sent. dls 10:55 Liver Profile Sent. dls 10:56 Inserted saline lock: 20 gauge in right antecubital area and blood collected. The dls patient tolerated the procedure well. No procedures done that require assistance. Labs drawn. (by ED staff). Sent per order to lab. Urine collected. Clean catch specimen. 11:02 Patient visited by Ashley Roe PA-C. ef1 11:02 The patient / caregiver is instructed regarding the plan of care and ED course. dls 11:31 Patient visited by Ashley Roe PA-C. ef1 11:47 CT ABD & PELVIS: No Contrast Returned. EDMS 12:18 Patient visited by Ashley Roe PA-C. ef1 12:40 Patient visited by Ashley Roe PA-C. ef1 12:57 Jackie Brush MD is Hospitalizing Provider. ef1 13:00 Patient visited by Nara Heller PCA. jam1 13:27 Admission Orders was scanned into [employer] and attached to record. ar3 13:41 Telma Gudino,KARTHIK is Primary Nurse. kr3 13:41 Patient moved to 7 kr3 13:42 Patient visited by Kasie Weir. nb2 13:49 Patient visited by Telma Gudino,KARTHIK. pml 14:34 Patient moved to Admit Hold [id number] 14:58 T-Sheet-- Draft Copy was scanned into [employer] and attached to record. gb 15:05 Patient visited by Telma Gudino,KARTHIK. pml 15:29 Patient visited by Anmol Russ RN. bcj 06/25 11:07 Radiology Report was scanned into [employer] and attached to record. gb Administered Medications: 06/23 10:55 Drug: NS 0.9% 1000 ml [sodium chloride 0.9 % intravenous solution] Route: IV; Rate: dls bolus; Site: right antecubital; 10:55 Drug: Ondansetron 4 mg Route: IVP; Site: right antecubital; dls 10:56 Drug: Metoclopramide 10 mg [metoclopramide 5 mg/mL injection solution] Route: IV; Rate: dls 40 mg/hr; Infused Over: 15 mins; Site: right antecubital; 11:46 Follow up: IV Status: Completed infusion dls 13:33 Drug: morphine 4 mg [morphine 4 mg/mL intravenous cartridge (1 mL)] Route: IVP; Site: dls right antecubital; 13:45 Follow up: Pain 0/10 Adult; Response: Pain is decreased pml 13:33 Drug: Ondansetron 4 mg [ondansetron HCl 2 mg/mL intravenous solution (2 mL)] Route: dls IVP; Site: right antecubital; 15:40 Drug: morphine 4 mg [morphine 4 mg/mL intravenous cartridge (1 mL)] Route: IVP; Site: pml right antecubital; 15:40 Drug: Ondansetron 4 mg [ondansetron HCl 2 mg/mL intravenous solution (2 mL)] Route: pml IVP; Site: right antecubital; 15:41 Follow up: Response: Pt left department before re-evaluation is appropriate [facility] Order Results: Lab Order: Amylase; SPEC'M 06/23/16 10:53 Test: AMYLASE; Value: 59; Range: 25-115; Units: U/L; Status: F Lab Order: Basic Metabolic Profile; SPEC'M 06/23/16 10:53 Test: GLUCOSE, FASTING; Value: 87; Range: 70-105; Units: MG/DL; Status: F Test: BLOOD UREA NITROGEN; Value: 19; Range: 7-18; Abnormal: Above high normal; Units: MG/DL; Status: F Test: CREATININE FOR GFR; Value: 1.67; Range: 0.55-1.02; Abnormal: Above high normal; Units: MG/DL; Status: F Test: GLOMERULAR FILTRATION RATE; Value: 37.0; Range: >60; Abnormal: Below low normal; Status: F Test: SODIUM LEVEL; Value: 142; Range: 136-145; Units: MEQ/L; Status: F Test: POTASSIUM SERUM; Value: 3.9; Range: 3.5-5.1; Units: MEQ/L; Status: F Test: CHLORIDE LEVEL; Value: 110; Range: 98-107; Abnormal: Above high normal; Units: MEQ/L; Status: F Test: CARBON DIOXIDE LEVEL; Value: 22; Range: 21-32; Units: MEQ/L; Status: F Test: ANION GAP; Value: 10; Range: 8-16; Units: MEQ/L; Status: F Test: CALCIUM LEVEL; Value: 9.0; Range: 8.5-10.1; Units: MG/DL; Status: F Test Note: ; Units are mL/min/1.73 m2 Chronic Kidney Disease Staging per NKF: Stage I & II GFR >=60 Normal to Mildly Decreased Stage III GFR 30-59 Moderately Decreased Stage IV GFR 15-29 Severely Decreased Stage V GFR <15 Very Little GFR Left ESRD GFR <15 on PROCESSING MGR Lab Order: CBC with Diff; SPEC'M 06/23/16 10:53 Test: WHITE BLOOD COUNT; Value: 9.9; Range: 4.0-10.0; Units: K/mm3; Status: F Test: RED BLOOD COUNT; Value: 4.61; Range: 4.00-5.40; Units: M/mm3; Status: F Test: HEMOGLOBIN; Value: 14.6; Range: 12.0-16.0; Units: g/dl; Status: F Test: HEMATOCRIT; Value: 42.3; Range: 36.0-47.0; Units: %; Status: F Test: MEAN CORPUSCULAR VOLUME; Value: 91.7; Range: 80.0-96.0; Units: fl; Status: F Test: MEAN CORPUSCULAR HEMOGLOBIN; Value: 31.7; Range: 27.0-33.0; Units: pg; Status: F Test: MEAN CORPUSCULAR HGB CONC; Value: 34.6; Range: 32.0-36.5; Units: g/dl; Status: F Test: RED CELL DISTRIBUTION WIDTH; Value: 13.1; Range: 11.5-14.5; Units: %; Status: F Test: PLATELET COUNT, AUTOMATED; Value: 286; Range: 150-450; Units: k/mm3; Status: F Test: NEUTROPHILS %; Value: 75.0; Range: 36.0-66.0; Abnormal: Above high normal; Units: %; Status: F Test: LYMPH %; Value: 15.0; Range: 24.0-44.0; Abnormal: Below low normal; Units: %; Status: F Test: MONO %; Value: 5.8; Range: 0.0-5.0; Abnormal: Above high normal; Units: %; Status: F Test: EOS %; Value: 2.7; Range: 0.0-3.0; Units: %; Status: F Test: BASO %; Value: 0.4; Range: 0.0-1.0; Units: %; Status: F Test: LARGE UNSTAINED CELL %; Value: 1.1; Range: 0.0-4.0; Units: %; Status: F Test: NEUTROPHILS #; Value: 7.5; Range: 1.8-7.7; Units: K/mm3; Status: F Test: LYMPH #; Value: 1.6; Range: 1.5-4.5; Units: K/mm3; Status: F Test: MONO #; Value: 0.6; Range: 0.0-0.8; Units: K/mm3; Status: F Test: EOS #; Value: 0.3; Range: 0.0-0.50; Units: K/mm3; Status: F Test: BASO #; Value: 0.0; Range: 0.0-0.2; Units: K/mm3; Status: F Test: LARGE UNSTAINED CELL #; Value: 0.1; Range: 0.0-0.4; Units: K/mm3; Status: F Lab Order: Lipase; [facility]' 06/23/16 10:53 Test: LIPASE; Value: 157; Range: 73-393; Units: U/L; Status: F Lab Order: Liver Profile; [facility]' 06/23/16 10:53 Test: AST/SGOT; Value: 13; Range: 15-37; Abnormal: Below low normal; Units: U/L; Status: F Test: ALT/SGPT; Value: 20; Range: 12-78; Units: U/L; Status: F Test: ALKALINE PHOSPHATASE; Value: 42; Range: 45-117; Abnormal: Below low normal; Units: U/L; Status: F Test: BILIRUBIN,TOTAL; Value: 0.2; Range: 0.2-1.0; Units: MG/DL; Status: F Test: BILIRUBIN,DIRECT; Value: < 0.1; Range: 0.0-0.2; Units: MG/DL; Status: F Test: TOTAL PROTEIN; Value: 7.1; Range: 6.4-8.2; Units: GM/DL; Status: F Test: ALBUMIN; Value: 3.6; Range: 3.2-5.2; Units: GM/DL; Status: F Test: ALBUMIN/GLOBULIN RATIO; Value: 1.03; Range: 1.00-1.93; Status: F Lab Order: Urinalysis; SPEC'M 06/23/16 10:45 Test: APPEARANCE, URINE; Value: CLEAR; Range: CLEAR; Status: F Test: COLOR, URINE; Value: ART; Range: YELLOW; Status: F Test: PH,URINE; Value: 5.0; Range: 5.0-9.0; Units: UNITS; Status: F Test: SPECIFIC GRAVITY URINE AUTO; Value: 1.024; Range: 1.002-1.035; Status: F Test: PROTEIN, URINE AUTO; Value: NEGATIVE; Range: NEGATIVE; Units: mg/dL; Status: F Test: GLUCOSE, URINE (UA) AUTO; Value: NEGATIVE; Range: NEGATIVE; Units: mg/dL; Status: F Test: KETONE, URINE AUTO; Value: NEGATIVE; Range: NEGATIVE; Units: mg/dL; Status: F Test: UROBILINOGEN, URINE AUTO; Value: 2.0; Range: 0.0-2.0; Abnormal: Above high normal; Units: mg/dL; Status: F Test: BILIRUBIN, URINE AUTO; Value: NEGATIVE; Range: NEGATIVE; Status: F Test: NITRITE, URINE AUTO; Value: POSITIVE; Range: NEGATIVE; Status: F Test: LEUKOCYTE ESTERASE, URINE AUTO; Value: 3+; Range: NEGATIVE; Abnormal: Above high normal; Status: F Test: BLOOD, URINE BLOOD; Value: 1+; Range: NEGATIVE; Abnormal: Above high normal; Status: F Test: WBC, URINE AUTO; Value: 7; Range: 0-3; Abnormal: Above high normal; Units: /HPF; Status: F Test: RBC, URINE AUTO; Value: 4; Range: 0-3; Abnormal: Above high normal; Units: /HPF; Status: F Test: BACTERIA, URINE AUTO; Value: NEGATIVE; Range: NEGATIVE; Status: F Test: SQUAMOUS EPITHELIAL CELL UR AU; Value: 5; Range: 0-6; Units: /HPF; Status: F Test: MUCUS, URINE; Value: SMALL; Range: NEGATIVE; Status: F Test: HYALINE CAST, URINE AUTO; Value: 0; Range: 0-1; Units: /LPF; Status: F Radiology Order: CT ABD & PELVIS: No Contrast Test: CT ABD & PELVIS: No Contrast REASON FOR EXAMINATION: Renal colic; Clinical: Renal colic.; ; Findings:; Mild to moderate right-sided obstructive uropathy is appreciated with perinephric; stranding and hydroureteronephrosis as well as periureteral stranding with a 4.0; mm calculus in the distal right ureter approaching the ureterovesicle junction; (images 129 - 130). The left kidney demonstrates 3 mm nonobstructing intrarenal; calculus without perinephric stranding or hydroureteronephrosis. The bladder is; collapsed.; ; Liver, spleen, pancreas, gallbladder, and bilateral adrenal glands are normal.; The enteric system is without obstruction or acute inflammatory process and a; normal terminal ileum and appendix are identified in the right lower quadrant.; Pelvis demonstrates collapsed bladder with 4 mm calculus approaching the right; ureterovesical junction. Uterus and adnexa are normal. No pelvic fluid or; ascites. No adenopathy. No free air. Abdominal aorta without aneurysm. Lung; bases are clear.; ; Impression:; Mild to moderate right-sided obstructive uropathy with a 4 mm calculus; approaching the ureterovesicle junction. 3 mm nonobstructing left renal; calculus.; ; ; Signed by; Keith Lacey MD 06/23/2016 11:34 A; Outcome: 12:57 Decision to Hospitalize by Provider. ef1 15:40 Discharge Assessment: Patient awake, alert and oriented x 3. No cognitive and/or pml functional deficits noted. Patient verbalized understanding of disposition instructions. patient administered narcotics - yes. Patient was admitted to the hospital or transferred to another facility. The following High Risk Discharge criteria are identified: None. Admitted to Pediatrics accompanied by tech, via wheelchair, with chart. Condition: good Condition: stable. CT Study completed. Admission hand-off: Report called to Pedkarina RN. Property :Personal belongings accompany Pt. 15:43 Patient left the ED. pml Signatures: Dispatcher [facility] Anmol Gil RN RN bcj Scott, Ivy, RN RN dls Arron, Nara, COMPENSATION AGENT COMPENSATION AGENT jam1 Bhavani Swann, Reg Reg gb Jesus Manuel Bass, Reg Reg lg Arianna Cardenas,RN RN kr3 Jyothi, Ashley, PA-C PA-C ef1 Camille Sullivan, COMPENSATION AGENT COMPENSATION AGENT ar3 Tania Aguilar,RN RN Telma Oconnell,RN Adela Walker,RN RN [id number] Kasie Weir2 Chart Complete MTDD
--- NOTE | 2016-06-25 16:44 | EDDOCDS ---
Physician Documentation [facility] Name: Janelle Fonseca Age: 36 yrs Sex: Female : 1980 Arrival Date: 06/23/2016 Time: 10:14 Bed Admit Hold Private MD: Samson Crawford Disposition: 06/23/16 12:57 Hospitalization ordered by Jackie Brush for Inpatient Admission. Preliminary diagnosis are Calculus of kidney and ureter - Right 4mm obstructing and Left 3mm nonobstructing left, Urinary tract infection, site not specified. - Bed requested for M PED. - Status is Inpatient Admission. pml - Condition is Stable. - Problem is new. - Symptoms have improved. Historical: - Allergies: no known allergies; - Home Meds: 1. Topamax 100 mg Oral tab 2 tabs 2 tabs at HS 1 tab in AM (Last dose: 06/22/2016) 2. botox injection every 3 months 3. Imitrex 25 mg Oral tab as needed (Last dose: Unknown) 4. Effexor XR 150 mg Oral cp24 2 cap once daily (Last dose: 06/22/2016) 5. Abilify 15 mg Oral tab 1 tab once daily (Last dose: 06/22/2016) 6. 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 No barriers to communication noted, The patient speaks fluent Maldivian, Speaks appropriately for age. - Family history: Not pertinent. - : The pt / caregiver states he / she is not on anticoagulants. Home medication list is obtained from the patient. - Exposure Risk Screening:: None identified. 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 3 in. (160.02 cm) (R); Pain 6/10; 13:42 BP 117 / 73; Pulse 78; Resp 18; Temp 96.9(O); Pulse Ox 98% on R/A; Pain 4/10; nb2 13:45 Pain 0/10; pml 15:42 BP 110 / 59; Pulse 84; Resp 18; Temp 97.9; Pulse Ox 99% on R/A; Pain 5/10; pml 10:17 Body Mass Index 35.43 (90.72 kg, 160.02 cm) nb2 MDM: 10:34 NS 0.9% 1000 ml IV at bolus once ordered. ef1 10:34 Ondansetron 4 mg IVP once ordered. ef1 10:34 IV Saline Lock ordered. ef1 10:34 Undress patient appropriately for examination ordered. ef1 10:34 Metoclopramide 10 mg IV at 40 mg/hr once over 15 mins ordered. ef1 10:35 Amylase Ordered. EDMS 10:35 Basic Metabolic Profile Ordered. EDMS 10:35 CBC with Diff Ordered. EDMS 10:35 Lipase Ordered. EDMS 10:35 Liver Profile Ordered. EDMS 10:35 Urinalysis Ordered. EDMS 10:35 Urine Culture Ordered. EDMS 10:36 CT ABD & PELVIS: No Contrast Ordered. EDMS 10:36 NOTHING BY MOUTH+DIET ordered. EDMS 10:44 Financial registration complete. lg 10:52 [facility] Payment Agreement was scanned into [employer] and attached to record. lg 11:31 Basic Metabolic Profile Reviewed. ef1 11:31 CBC with Diff Reviewed. ef1 11:31 Liver Profile Reviewed. ef1 11:31 Urinalysis Reviewed. ef1 11:31 Amylase Reviewed. ef1 11:31 Lipase Reviewed. ef1 12:53 morphine 4 mg IVP once ordered. ef1 12:53 Ondansetron 4 mg IVP once ordered. ef1 13:27 Admission Orders was scanned into [employer] and attached to record. ar3 14:58 T-Sheet-- Draft Copy was scanned into [employer] and attached to record. gb 14:59 BED REQUEST+ADM ordered. EDMS 15:30 morphine 4 mg IVP once ordered. ef1 15:30 Ondansetron 4 mg IVP once ordered. ef1 06/25 11:07 Radiology Report was scanned into [employer] and attached to record. gb Administered Medications: 06/23 10:55 Drug: NS 0.9% 1000 ml [sodium chloride 0.9 % intravenous solution] Route: IV; Rate: dls bolus; Site: right antecubital; 10:55 Drug: Ondansetron 4 mg Route: IVP; Site: right antecubital; dls 10:56 Drug: Metoclopramide 10 mg [metoclopramide 5 mg/mL injection solution] Route: IV; Rate: dls 40 mg/hr; Infused Over: 15 mins; Site: right antecubital; 11:46 Follow up: IV Status: Completed infusion dls 13:33 Drug: morphine 4 mg [morphine 4 mg/mL intravenous cartridge (1 mL)] Route: IVP; Site: dls right antecubital; 13:45 Follow up: Pain 0/10 Adult; Response: Pain is decreased pml 13:33 Drug: Ondansetron 4 mg [ondansetron HCl 2 mg/mL intravenous solution (2 mL)] Route: dls IVP; Site: right antecubital; 15:40 Drug: morphine 4 mg [morphine 4 mg/mL intravenous cartridge (1 mL)] Route: IVP; Site: pml right antecubital; 15:40 Drug: Ondansetron 4 mg [ondansetron HCl 2 mg/mL intravenous solution (2 mL)] Route: pml IVP; Site: right antecubital; 15:41 Follow up: Response: Pt left department before re-evaluation is appropriate [facility] Signatures: Dispatcher [employer] Ivy Knight RN RN dls Bhavani Swann, Reg Reg gb Jesus Manuel Bass, Reg Reg lg Ashley Roe, PA-C PA-C ef1 Camille Sullivan, LANDSCAPING SUPERVISOR LANDSCAPING SUPERVISOR ar3 Tania Aguilar RN RN dsf Telma Gudion RN RN pml The chart was reviewed and I authenticate all verbal orders and agree with the evaluation and treatment provided.Attachments: 10:52 [facility] Payment Agreement lg 13:27 Admission Orders ar3 14:58 T-Sheet-- Draft Copy Chart Complete MTDD
--- NOTE | 2016-06-25 16:44 | EDDOCDS ---
Physician Documentation [facility] Name: Janelle Fonseca Age: 36 yrs Sex: Female : 1980 Arrival Date: 06/23/2016 Time: 10:14 Bed Admit Hold Private MD: Samson rCawford Disposition: 06/23/16 12:57 Hospitalization ordered by Jackie Brush for Inpatient Admission. Preliminary diagnosis are Calculus of kidney and ureter - Right 4mm obstructing and Left 3mm nonobstructing left, Urinary tract infection, site not specified. - Bed requested for M PED. - Status is Inpatient Admission. pml - Condition is Stable. - Problem is new. - Symptoms have improved. Historical: - Allergies: no known allergies; - Home Meds: 1. Topamax 100 mg Oral tab 2 tabs 2 tabs at HS 1 tab in AM (Last dose: 06/22/2016) 2. botox injection every 3 months 3. Imitrex 25 mg Oral tab as needed (Last dose: Unknown) 4. Effexor XR 150 mg Oral cp24 2 cap once daily (Last dose: 06/22/2016) 5. Abilify 15 mg Oral tab 1 tab once daily (Last dose: 06/22/2016) 6. 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 No barriers to communication noted, The patient speaks fluent Micronesian, Speaks appropriately for age. - Family history: Not pertinent. - : The pt / caregiver states he / she is not on anticoagulants. Home medication list is obtained from the patient. - Exposure Risk Screening:: None identified. 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 3 in. (160.02 cm) (R); Pain 6/10; 13:42 BP 117 / 73; Pulse 78; Resp 18; Temp 96.9(O); Pulse Ox 98% on R/A; Pain 4/10; nb2 13:45 Pain 0/10; pml 15:42 BP 110 / 59; Pulse 84; Resp 18; Temp 97.9; Pulse Ox 99% on R/A; Pain 5/10; pml 10:17 Body Mass Index 35.43 (90.72 kg, 160.02 cm) nb2 MDM: 10:34 NS 0.9% 1000 ml IV at bolus once ordered. ef1 10:34 Ondansetron 4 mg IVP once ordered. ef1 10:34 IV Saline Lock ordered. ef1 10:34 Undress patient appropriately for examination ordered. ef1 10:34 Metoclopramide 10 mg IV at 40 mg/hr once over 15 mins ordered. ef1 10:35 Amylase Ordered. EDMS 10:35 Basic Metabolic Profile Ordered. EDMS 10:35 CBC with Diff Ordered. EDMS 10:35 Lipase Ordered. EDMS 10:35 Liver Profile Ordered. EDMS 10:35 Urinalysis Ordered. EDMS 10:35 Urine Culture Ordered. EDMS 10:36 CT ABD & PELVIS: No Contrast Ordered. EDMS 10:36 NOTHING BY MOUTH+DIET ordered. EDMS 10:44 Financial registration complete. lg 10:52 [facility] Payment Agreement was scanned into [employer] and attached to record. lg 11:31 Basic Metabolic Profile Reviewed. ef1 11:31 CBC with Diff Reviewed. ef1 11:31 Liver Profile Reviewed. ef1 11:31 Urinalysis Reviewed. ef1 11:31 Amylase Reviewed. ef1 11:31 Lipase Reviewed. ef1 12:53 morphine 4 mg IVP once ordered. ef1 12:53 Ondansetron 4 mg IVP once ordered. ef1 13:27 Admission Orders was scanned into [employer] and attached to record. ar3 14:58 T-Sheet-- Draft Copy was scanned into [employer] and attached to record. gb 14:59 BED REQUEST+ADM ordered. EDMS 15:30 morphine 4 mg IVP once ordered. ef1 15:30 Ondansetron 4 mg IVP once ordered. ef1 06/25 11:07 Radiology Report was scanned into [employer] and attached to record. gb Administered Medications: 06/23 10:55 Drug: NS 0.9% 1000 ml [sodium chloride 0.9 % intravenous solution] Route: IV; Rate: dls bolus; Site: right antecubital; 10:55 Drug: Ondansetron 4 mg Route: IVP; Site: right antecubital; dls 10:56 Drug: Metoclopramide 10 mg [metoclopramide 5 mg/mL injection solution] Route: IV; Rate: dls 40 mg/hr; Infused Over: 15 mins; Site: right antecubital; 11:46 Follow up: IV Status: Completed infusion dls 13:33 Drug: morphine 4 mg [morphine 4 mg/mL intravenous cartridge (1 mL)] Route: IVP; Site: dls right antecubital; 13:45 Follow up: Pain 0/10 Adult; Response: Pain is decreased pml 13:33 Drug: Ondansetron 4 mg [ondansetron HCl 2 mg/mL intravenous solution (2 mL)] Route: dls IVP; Site: right antecubital; 15:40 Drug: morphine 4 mg [morphine 4 mg/mL intravenous cartridge (1 mL)] Route: IVP; Site: pml right antecubital; 15:40 Drug: Ondansetron 4 mg [ondansetron HCl 2 mg/mL intravenous solution (2 mL)] Route: pml IVP; Site: right antecubital; 15:41 Follow up: Response: Pt left department before re-evaluation is appropriate [facility] Signatures: Dispatcher [employer] Ivy Knight RN RN dls Bhavani Swann, Reg Reg gb Jesus Manuel Bass, Reg Reg lg Ashley Roe, PA-C PA-C ef1 Camille Sullivan, WORM FARMER WORM FARMER ar3 Tania Aguilar RN RN dsf Telma Gudino RN RN pml The chart was reviewed and I authenticate all verbal orders and agree with the evaluation and treatment provided.Attachments: 10:52 [facility] Payment Agreement lg 13:27 Admission Orders ar3 14:58 T-Sheet-- Draft Copy Chart Complete MTDD
== END 2016-06-24 00:35 | disposition home or self-care (01) ==
LOC: M ED 10:14 → M SDC 13:15 → M PED 15:50 → M SDC 06-24 00:35
PROVIDERS: ATTEND Specialist
DX: N20.1 Calculus of ureter (principal); E78.5 Hyperlipidemia, unspecified; F32.9 Major depressive disorder, single episode, unspecified; F41.9 Anxiety disorder, unspecified; Z79.899 Other long term (current) drug therapy
CPT/HCPCS: 36415; 52332; 52352; 74176; 74420; 80048; 80076; 81001; 82150; 83690; 85025; 87086; 96365; 96375; 96376; 99285; C2617; J0690; J1885; J2250; J2405; J2710; J2765; J3010; Q9961

== ENCOUNTER → 2016-07-11 | Outpatient (REF) | payer OTHER, MEDICAID, MEDICARE ==
[~2016-07-11] MED LIST changes: +ABIL1TAB5 PO; +BOTO10VL IM; +IBUPOTC PO; +MACR100C3 PO; +PERCOCET PO; +SUMA100T2 PO; +TOPI1TAB31 PO; +VENL150T PO
[2016-07-11 19:42] LABS: BACTERIA, URINE NONE SEEN; HYALINE CAST, URINE NONE SEEN /lpf (0-1); MICROSCOPIC EXAM PERFORMED; RBC, URINE TNTC /hpf (0-3); SQUAMOUS EPITHELIAL CELL URINE SMALL AMOUNT /hpf (SMALL AMT); WBC, URINE TNTC /hpf (0-3)
== END ==
LOC: M SMT 16:51
PROVIDERS: ATTEND Specialist
DX: N20.0 Calculus of kidney (principal)

== ENCOUNTER → 2016-10-04 | Outpatient (REF) | payer MEDICARE | LOC: M SFHCWAGY 09:26 | PROVIDERS: ATTEND Nurse Practitioner Women's Health | DX: Z12.4 Encounter for screening for malignant neoplasm of cervix (principal); R87.619 Unspecified abnormal cytological findings in specimens from cervix uteri | CPT/HCPCS: 87624; G0101; G0123 ==

== ENCOUNTER → 2016-12-17 | Outpatient (REF) | payer MEDICARE, MEDICAID ==
[~2016-12-17] MED LIST changes: +ABIL10TA9 PO; -ABIL1TAB5 PO; -MACR100C3 PO; +MACR100C43 PO; +TOPI100T9 PO; -TOPI1TAB31 PO
== END ==
LOC: M SFHCWAGY 15:40
PROVIDERS: ATTEND Nurse Practitioner Women's Health
DX: N87.1 Moderate cervical dysplasia (principal)

== ENCOUNTER → 2017-03-20 | Outpatient (REF) | payer MEDICARE, MEDICAID | LOC: M LAB REF 17:43 | PROVIDERS: ATTEND Obstetrics & Gynecology | DX: R87.613 High grade squamous intraepithelial lesion on cytologic smear of cervix (HGSIL) (principal) ==

== ENCOUNTER → 2018-03-31 | Outpatient (REF) | payer MEDICARE, MEDICAID ==
[2018-04-04 08:08] LABS: HPV HYBRID CAPTURE II Positive (Negative)
== END ==
LOC: M SFHCWAGY 11:11
DX: Z12.4 Encounter for screening for malignant neoplasm of cervix (principal); R87.613 High grade squamous intraepithelial lesion on cytologic smear of cervix (HGSIL); R87.5 Abnormal microbiological findings in specimens from female genital organs; F34.1 Dysthymic disorder; F60.5 Obsessive-compulsive personality disorder
CPT/HCPCS: G0123

== ENCOUNTER → 2018-06-24 | Outpatient (REF) | payer MEDICARE, MEDICAID | LOC: M LAB REF 17:54 | PROVIDERS: ATTEND Obstetrics & Gynecology | DX: N87.1 Moderate cervical dysplasia (principal); R87.613 High grade squamous intraepithelial lesion on cytologic smear of cervix (HGSIL) ==

== ENCOUNTER → 2018-07-15 | Outpatient (REF) | payer MEDICARE, MEDICAID ==
[2018-07-15 11:21] LABS: HEMOGLOBIN 14.6 g/dl (12.0-15.5); MEAN CORPUSCULAR HEMOGLOBIN 30.5 pg (27.0-33.0); MEAN CORPUSCULAR HGB CONC 33.2 g/dl (32.0-36.5); MEAN CORPUSCULAR VOLUME 92.1 fl (80.0-96.0); PLATELET COUNT, AUTOMATED 350 10^3/uL (150-450); RED BLOOD COUNT 4.78 10^6/uL (4.00-5.40)
[2018-07-15 12:55] LABS: ALBUMIN 3.6 GM/DL (3.2-5.2); ALT/SGPT 24 U/L (12-78); BILIRUBIN,TOTAL 0.2 MG/DL (0.2-1.0); BLOOD UREA NITROGEN 10 MG/DL (7-18); CALCIUM LEVEL 9.1 MG/DL (8.5-10.1); CARBON DIOXIDE LEVEL 23 MEQ/L (21-32); CHLORIDE LEVEL 110 MEQ/L (98-107); CHOLESTEROL LEVEL 281 MG/DL (<200); CHOLESTEROL RISK RATIO 7.594 (<5); CREATININE FOR GFR 1.06 MG/DL (0.55-1.30); GLOMERULAR FILTRATION RATE > 60.0 (>60); GLUCOSE, FASTING 108 MG/DL (70-100); HDL CHOLESTEROL 37 MG/DL (>40); LDL CHOLESTEROL 216 MG/DL (<100); NON-HDL-C 244 MG/DL; POTASSIUM SERUM 4.2 MEQ/L (3.5-5.1); SODIUM LEVEL 140 MEQ/L (136-145); TOTAL PROTEIN 7.2 GM/DL (6.4-8.2); TRIGLYCERIDES LEVEL 140 MG/DL (<150)
== END ==
LOC: M SFHCPLAZ 08:40
PROVIDERS: ATTEND Internal Medicine
DX: Z00.00 Encounter for general adult medical examination without abnormal findings (principal); E78.00 Pure hypercholesterolemia, unspecified; F34.1 Dysthymic disorder

== ENCOUNTER → 2019-01-21 | Outpatient (REF) | payer MEDICARE, MEDICAID ==
[~2019-01-21] MED LIST changes: -/ONDA4TA OR; +AIMO70IN2; +ATOR1TAB19; +MECL12.575; +ONDA-1 OR; +PROC5TA; -VENL150T PO; +VENL150T14 PO
[2019-01-23 14:26] LABS: HPV HYBRID CAPTURE II Positive (Negative)
== END ==
LOC: M LAB REF 13:26
PROVIDERS: ATTEND Obstetrics & Gynecology
DX: R87.610 Atypical squamous cells of undetermined significance on cytologic smear of cervix (ASC-US) (principal); Z12.4 Encounter for screening for malignant neoplasm of cervix
CPT/HCPCS: 87624; G0123

== ENCOUNTER → 2019-03-24 | Outpatient (REF) | payer MEDICARE, MEDICAID | LOC: M LAB REF 17:36 | PROVIDERS: ATTEND Obstetrics & Gynecology | DX: N87.0 Mild cervical dysplasia (principal) ==

== ENCOUNTER → 2020-03-29 | Outpatient (REF) | payer MEDICARE, MEDICAID ==
[~2020-03-29] MED LIST changes: -MECL12.575; +MECL12.589; -PROC5TA; +PROC5TAB57
[2020-03-29 11:30] LABS: HEMATOCRIT 43.6 % (36.0-47.0); HEMOGLOBIN 13.9 g/dl (12.0-15.5); MEAN CORPUSCULAR HEMOGLOBIN 30.2 pg (27.0-33.0); MEAN CORPUSCULAR HGB CONC 31.9 g/dl (32.0-36.5); MEAN CORPUSCULAR VOLUME 94.6 fl (80.0-96.0); PLATELET COUNT, AUTOMATED 378 10^3/uL (150-450); RED BLOOD COUNT 4.61 10^6/uL (4.00-5.40); WHITE BLOOD COUNT 8.3 10^3/uL (4.0-10.0)
[2020-03-29 12:04] LABS: ALBUMIN 3.4 GM/DL (3.2-5.2); ALT/SGPT 25 U/L (12-78); BILIRUBIN,TOTAL 0.2 MG/DL (0.2-1.0); BLOOD UREA NITROGEN 12 MG/DL (7-18); CALCIUM LEVEL 8.8 MG/DL (8.5-10.1); CARBON DIOXIDE LEVEL 21 MEQ/L (21-32); CHLORIDE LEVEL 111 MEQ/L (98-107); CHOLESTEROL LEVEL 224 MG/DL (<200); CHOLESTEROL RISK RATIO 5.209 (<5); CREATININE FOR GFR 0.92 MG/DL (0.55-1.30); GLOMERULAR FILTRATION RATE > 60.0 (>58); GLUCOSE, FASTING 102 MG/DL (70-100); HDL CHOLESTEROL 43 MG/DL (>40); LDL CHOLESTEROL 144 MG/DL (<100); NON-HDL-C 181 MG/DL; POTASSIUM SERUM 4.5 MEQ/L (3.5-5.1); SODIUM LEVEL 139 MEQ/L (136-145); TRIGLYCERIDES LEVEL 184 MG/DL (<150)
== END ==
LOC: M PLALAB 07:58
PROVIDERS: ATTEND Internal Medicine
DX: E78.00 Pure hypercholesterolemia, unspecified (principal)

== ENCOUNTER → 2020-03-29 | Outpatient (CLI) | payer MEDICARE, MEDICAID ==
[2020-03-29 11:31] LABS: BASO % 0.4 % (0.0-1.0); EOS # 0.1 10^3/uL (0.0-0.5); EOS % 1.3 % (0.0-3.0); HEMATOCRIT 43.2 % (36.0-47.0); HEMOGLOBIN 13.9 g/dl (12.0-15.5); LYMPH # 2.3 10^3/uL (1.5-5.0); LYMPH % 25.7 % (24.0-44.0); MEAN CORPUSCULAR HEMOGLOBIN 30.5 pg (27.0-33.0); MEAN CORPUSCULAR HGB CONC 32.2 g/dl (32.0-36.5); MEAN CORPUSCULAR VOLUME 94.9 fl (80.0-96.0); MONO # 0.6 10^3/uL (0.0-0.8); NEUTROPHILS # 5.8 10^3/uL (1.5-8.5); NEUTROPHILS % 64.9 % (36.0-66.0); PLATELET COUNT, AUTOMATED 359 10^3/uL (150-450); RED BLOOD COUNT 4.55 10^6/uL (4.00-5.40); WHITE BLOOD COUNT 8.9 10^3/uL (4.0-10.0)
[2020-03-29 12:07] LABS: ALBUMIN 3.5 GM/DL (3.2-5.2); ALT/SGPT 25 U/L (12-78); BILIRUBIN,TOTAL 0.2 MG/DL (0.2-1.0); BLOOD UREA NITROGEN 11 MG/DL (7-18); CARBON DIOXIDE LEVEL 23 MEQ/L (21-32); CHLORIDE LEVEL 111 MEQ/L (98-107); CHOLESTEROL LEVEL 215 MG/DL (<200); CHOLESTEROL RISK RATIO 5.243 (<5); CREATININE FOR GFR 0.89 MG/DL (0.55-1.30); FREE T4 0.76 NG/DL (0.76-1.46); GLOMERULAR FILTRATION RATE > 60.0 (>58); GLUCOSE, FASTING 98 MG/DL (70-100); HDL CHOLESTEROL 41 MG/DL (>40); LDL CHOLESTEROL 138 MG/DL (<100); NON-HDL-C 174 MG/DL; POTASSIUM SERUM 4.4 MEQ/L (3.5-5.1); SODIUM LEVEL 140 MEQ/L (136-145); TOTAL PROTEIN 7.1 GM/DL (6.4-8.2); TOTAL T3 137.8 NG/DL (60.0-181.0); TRIGLYCERIDES LEVEL 181 MG/DL (<150); VITAMIN B12 LEVEL 271 PG/ML (247-911)
== END ==
LOC: M PLALAB 07:59
PROVIDERS: ATTEND Psychiatry & Neurology Neurology
DX: R25.1 Tremor, unspecified (principal); R41.3 Other amnesia; H81.4 Vertigo of central origin; E78.00 Pure hypercholesterolemia, unspecified

== ENCOUNTER → 2020-07-06 | Outpatient (REF) | payer MEDICARE, MEDICAID ==
[~2020-07-06] MED LIST changes: +MECL-136; -MECL12.589
== END ==
LOC: M SFHCWAGY 17:33
PROVIDERS: ATTEND Obstetrics & Gynecology
DX: Z12.4 Encounter for screening for malignant neoplasm of cervix (principal)
CPT/HCPCS: G0101; G0123; G0463

== ENCOUNTER → 2020-08-25 | Outpatient (REF) | payer MEDICARE, MEDICAID | LOC: M SFHCPLAZ 13:17 | PROVIDERS: ATTEND Physician Assistant | DX: J01.90 Acute sinusitis, unspecified (principal) | CPT/HCPCS: 87426; G0463; U0003 ==

== ENCOUNTER → 2021-10-13 | Outpatient (REF) | payer MEDICARE, MEDICAID | LOC: M SFHCWAGY 17:07 | PROVIDERS: ATTEND Obstetrics & Gynecology | DX: Z01.419 Encounter for gynecological examination (general) (routine) without abnormal findings (principal); N76.0 Acute vaginitis; R87.810 Cervical high risk human papillomavirus (HPV) DNA test positive | CPT/HCPCS: 87624; G0101; G0123 ==

== ENCOUNTER 2021-11-18 07:44 | Emergency (ER) | payer MEDICARE, MEDICAID ==
[~2021-11-18] VITALS: Ht 162.6 cm; Wt 106.3 kg
[2021-11-18] MEDS ORDERED: KETOROLAC 30 MG/ML 1ML VIAL IM ONE (08:55)
[2021-11-18] MEDS ORDERED: LIDOCAINE 5% (LIDODERM) PATCH TD ONE (08:55)
[2021-11-18] MEDS ORDERED: diazePAM 5MG TABLET PO ONE (08:55)
[2021-11-18] MEDS ORDERED: VALI5TAB PO (10:50)
[2021-11-18 11:09] VITALS: BP 134/78
[2021-11-18] MEDS ORDERED: **NOTE PATIENT COMMENT** MISC XX SCH (21:00)
== END 2021-11-18 11:13 | disposition home or self-care (01) ==
LOC: M ED 07:44
DX: M54.9 Dorsalgia, unspecified (principal); M25.78 Osteophyte, vertebrae; M40.56 Lordosis, unspecified, lumbar region; Z79.899 Other long term (current) drug therapy
CPT/HCPCS: 72131; 81001; 96372; 99283; J1885

== ENCOUNTER → 2021-12-06 | Outpatient (CLI) | payer MEDICARE, MEDICAID ==
[~2021-12-06] MED LIST changes: +VALI5TAB PO
== END ==
LOC: M WHC 06:54
PROVIDERS: ATTEND Obstetrics & Gynecology
DX: Z12.31 Encounter for screening mammogram for malignant neoplasm of breast (principal)

== ENCOUNTER → 2022-08-17 | Outpatient (CLI) | payer MEDICARE, MEDICAID | LOC: M PLAIMG 08:25 | PROVIDERS: ATTEND Physician Assistant | DX: M25.541 Pain in joints of right hand (principal) ==

== ENCOUNTER → 2022-08-17 | Outpatient (CLI) | payer MEDICARE, MEDICAID ==
[2022-08-17 12:20] LABS: ALBUMIN 3.6 G/DL (3.2-5.2); ALKALINE PHOSPHATASE 40 U/L (46-116); ALT/SGPT 21 U/L (7.0-40); AST/SGOT 11 U/L (<34); BILIRUBIN,TOTAL 0.3 MG/DL (0.3-1.2); BLOOD UREA NITROGEN 14 MG/DL (9-23); CALCIUM LEVEL 9.5 MG/DL (8.5-10.1); CARBON DIOXIDE LEVEL 24 MMOL/L (20-31); CHLORIDE LEVEL 110 MMOL/L (98-107); CHOLESTEROL LEVEL 227 MG/DL (<200); CHOLESTEROL RISK RATIO 5.52 (<5); CREATININE FOR GFR 1.01 MG/DL (0.55-1.30); GLOMERULAR FILTRATION RATE > 60.0 (>58); GLUCOSE, FASTING 92 MG/DL (60-100); HDL CHOLESTEROL 41.1 MG/DL (>40); LDL CHOLESTEROL 147.9 MG/DL (<100); NON-HDL-C 185.9 MG/DL; POTASSIUM SERUM 4.4 MMOL/L (3.5-5.1); SODIUM LEVEL 141 MMOL/L (136-145); TOTAL PROTEIN 6.9 G/DL (5.7-8.2); TRIGLYCERIDES LEVEL 190 MG/DL (<150)
== END ==
LOC: M PLALAB 08:23
PROVIDERS: ATTEND Nurse Practitioner Adult Health
DX: E78.00 Pure hypercholesterolemia, unspecified (principal); M25.541 Pain in joints of right hand

== ENCOUNTER → 2023-09-05 | Outpatient (REF) | payer MEDICARE, MEDICAID | LOC: M SFHCPLAZ 12:25 | PROVIDERS: ATTEND Nurse Practitioner Adult Health | DX: R09.89 Other specified symptoms and signs involving the circulatory and respiratory systems (principal) ==

== ENCOUNTER 2023-10-15 07:27 | Emergency (ER) | payer MEDICARE, MEDICAID ==
[~2023-10-15] VITALS: Ht 160 cm; Wt 103.2 kg
[2023-10-15] MEDS ORDERED: ELET40TA (07:36)
[2023-10-15 08:54] LABS: BASO % 0.4 % (0.0-1.0); EOS # 0.1 10^3/uL (0.0-0.5); EOS % 1.2 % (0.0-3.0); HEMATOCRIT 44.6 % (36.0-47.0); HEMOGLOBIN 14.9 g/dl (12.0-15.5); LYMPH # 2.3 10^3/uL (1.5-5.0); LYMPH % 24.3 % (24.0-44.0); MEAN CORPUSCULAR HEMOGLOBIN 30.5 pg (27.0-33.0); MEAN CORPUSCULAR HGB CONC 33.4 g/dl (32.0-36.5); MEAN CORPUSCULAR VOLUME 91.4 fl (80.0-96.0); MONO # 0.6 10^3/uL (0.0-0.8); NEUTROPHILS # 6.3 10^3/uL (1.5-8.5); NEUTROPHILS % 67.7 % (36.0-66.0); PLATELET COUNT, AUTOMATED 306 10^3/uL (150-450); RED BLOOD COUNT 4.88 10^6/uL (4.00-5.40); WHITE BLOOD COUNT 9.3 10^3/uL (4.0-10.0)
[2023-10-15] MEDS: diphenhydrAMINE 50MG/ML VIAL IV ONE (08:55)
[2023-10-15] MEDS: PROCHLORPERAZINE 10MG 2ML VIAL IV ONE (08:55)
[2023-10-15] MEDS: NS 1,000 ML IV ONE (08:56)
[2023-10-15 09:01] LABS: ERYTHROCYTE SEDIMENTATION RATE 34 mm/hr (0-20)
[2023-10-15 09:15] LABS: C REACTIVE PROTEIN QUANTITATIV 0.9 MG/DL (<1.0)
[2023-10-15] MEDS ORDERED: KETOROLAC 30 MG/ML 1ML VIAL IV ONE (09:50)
[2023-10-15 09:51] VITALS: BP 124/75; TEMP 97.3; O2SAT 98
[2023-10-15] MEDS: KETOROLAC 60MG 2ML VIAL IM ONE (10:08)
== END 2023-10-15 10:11 | disposition home or self-care (01) ==
LOC: M ED 07:27
DX: G43.909 Migraine, unspecified, not intractable, without status migrainosus (principal); F41.9 Anxiety disorder, unspecified; F32.A Depression, unspecified; F17.200 Nicotine dependence, unspecified, uncomplicated; Z79.1 Long term (current) use of non-steroidal anti-inflammatories (NSAID); Z79.899 Other long term (current) drug therapy
CPT/HCPCS: 70450; 80047; 83735; 85025; 85652; 86140; 96361; 96372; 96374; 99284; J0780; J1100; J1200; J1885

== ENCOUNTER 2024-04-21 10:12 | Emergency (ER) | payer MEDICARE, MEDICAID ==
[~2024-04-21] VITALS: Ht 160 cm; Wt 103.4 kg
[~2024-04-21 10:12] MED LIST changes: +ELET40TA
[2024-04-21] MEDS ORDERED: AUGM500T34 PO (15:56)
[2024-04-21 16:08] VITALS: BP 144/68; TEMP 97.3; O2SAT 100
== END 2024-04-21 16:10 | disposition home or self-care (01) ==
LOC: M ED 10:12
DX: H66.91 Otitis media, unspecified, right ear (principal); G43.909 Migraine, unspecified, not intractable, without status migrainosus; Z79.899 Other long term (current) drug therapy

== ENCOUNTER 2024-11-19 08:35 | Day surgery (SDC) | payer MEDICARE, MEDICAID ==
[~2024-11-19] VITALS: Ht 160 cm; Wt 101.6 kg
[~2024-11-19 08:35] MED LIST changes: +AUGM500T34 PO; +TIZA10TA PO; +TOPI-257 PO; -TOPI100T9 PO; +VENL150C43 PO
[2024-11-19] MEDS: LR 1,000 ML IV SCH (10:54)
[2024-11-19] MEDS ORDERED: SCOPOLAMINE 1MG TRANSDERMAL PATCH TOP ONE (11:45)
[2024-11-19] MEDS ORDERED: ONDANSETRON 4MG 2ML VIAL As Ordered ONE (11:56)
[2024-11-19] MEDS ORDERED: ACETAMINOPHEN 1000MG/100ML IV BAG As Ordered ONE (11:56)
[2024-11-19] MEDS ORDERED: dexAMETHasone 4 MG/ML 1 ML VIAL As Ordered ONE (11:56)
[2024-11-19] MEDS ORDERED: LIDOCAINE 2% 100 MG/5 ML SDV (FOR ANES.) As Ordered ONE (11:56)
[2024-11-19] MEDS ORDERED: MIDAZOLAM INJ 2 MG/2 ML VIAL As Ordered ONE (11:57)
[2024-11-19] MEDS: CIPRODEX OTIC SUSP 7.5 ML As Ordered ONE (12:21)
[2024-11-19 13:10] VITALS: BP 129/67; TEMP 97; O2SAT 98
== END 2024-11-19 13:29 | disposition home or self-care (01) ==
LOC: M SDC 08:35
PROVIDERS: ATTEND Otolaryngology
DX: H69.93 Unspecified Eustachian tube disorder, bilateral (principal); F41.9 Anxiety disorder, unspecified; F32.A Depression, unspecified; G43.909 Migraine, unspecified, not intractable, without status migrainosus; Z79.899 Other long term (current) drug therapy; Z87.891 Personal history of nicotine dependence
CPT/HCPCS: 69436; J0131; J1100; J2250; J2405; J3010

== ENCOUNTER → 2025-01-18 | Outpatient (CLI) | payer MEDICARE, MEDICAID ==
[2025-01-18 10:54] LABS: PLATELET COUNT, AUTOMATED 351 10^3/uL (150-450)
[2025-01-18 11:13] LABS: ESTIMATED AVERAGE GLUCOSE 123.0 MG/DL (60-110)
[2025-01-18 11:18] LABS: ALT/SGPT 23.0 U/L (7.0-40); AST/SGOT 15.0 U/L (<34); CALCIUM LEVEL 9.1 MG/DL (8.5-10.1); CARBON DIOXIDE LEVEL 22.0 MMOL/L (20-31); CHLORIDE LEVEL 108.0 MMOL/L (98-107); CREATININE FOR GFR 1.03 MG/DL (0.55-1.30); GLOMERULAR FILTRATION RATE 68.3 (>58); IRON (FE) 70.0 UG/DL (50-170); PERCENT SATURATION 24.1 % (13.2-45.0); POTASSIUM SERUM 4.0 MMOL/L (3.5-5.1); SODIUM LEVEL 138.0 MMOL/L (136-145)
[2025-01-18 11:20] LABS: FREE T4 0.92 NG/DL (0.89-1.76)
[2025-01-18 11:22] LABS: RHEUMATOID FACTOR QUANT 4.9 IU/ML (<14)
== END ==
LOC: M PLALAB 09:10
PROVIDERS: ATTEND Nurse Practitioner Adult Health
DX: N92.0 Excessive and frequent menstruation with regular cycle (principal); R53.83 Other fatigue; M25.50 Pain in unspecified joint; R06.02 Shortness of breath; Z79.899 Other long term (current) drug therapy

== ENCOUNTER → 2025-01-28 | Outpatient (REF) | payer MEDICARE, MEDICAID | LOC: M PLALAB 08:11 | PROVIDERS: ATTEND Advanced Practice Midwife | DX: Z12.4 Encounter for screening for malignant neoplasm of cervix (principal); R87.619 Unspecified abnormal cytological findings in specimens from cervix uteri | CPT/HCPCS: 87624; G0123 ==

== ENCOUNTER → 2025-01-28 | Outpatient (CLI) | payer MEDICARE, MEDICAID | LOC: M WHC 08:14 | PROVIDERS: ATTEND Nurse Practitioner Family | DX: Z12.31 Encounter for screening mammogram for malignant neoplasm of breast (principal) ==

== ENCOUNTER → 2025-04-22 | Outpatient (CLI) | payer MEDICARE, MEDICAID ==
[~2025-04-22] MED LIST changes: -PROC5TAB57; +PROC5TAB81; +PROHANCE 279.3MG/ML 15ML VIAL ONE; +PROHANCE 279.3MG/ML 5ML VIAL ONE
== END ==
LOC: M PLAIMG 14:30
PROVIDERS: ATTEND Physical Medicine & Rehabilitation
DX: M54.2 Cervicalgia (principal); M75.51 Bursitis of right shoulder
CPT/HCPCS: 73223; A9579